=== PATIENT | female | born 1935 | race African-American/Black ===

== ENCOUNTER 2019-01-11 11:23 | Observation (INO) | payer OTHER ==
[~2019-01-11] VITALS: Ht 160 cm; Wt 59.3 kg
[2019-01-11 14:40] VITALS: BP 118/52
[2019-01-11 15:21] LABS: HEMOGLOBIN 11.2 gm/dL (12.0-15.0); MCH 25.9 pg (26.0-34.0); MCHC 33.9 g/dL (28.0-37.0); MCV 76.5 fL (80.0-100.0); RBC 4.32 mil/uL (4.20-5.00); RDW 22.1 % (10.5-14.5); WBC 17.1 thou/uL (4.0-11.0)
[2019-01-11 15:31] LABS: CALCIUM 10.2 mg/dL (8.5-10.1); CREATININE 0.8 mg/dL (0.6-1.0); POTASSIUM 4.4 mmol/L (3.5-5.1)
[2019-01-11] MEDS ORDERED: NORVASC10 MG PO (16:56)
[2019-01-11] MEDS ORDERED: TYLENOL325 MG PER TUBE (16:56)
[2019-01-11] MEDS ORDERED: ASPIR 8181 MG PER TUBE (16:57)
[2019-01-11] MEDS ORDERED: LIPITOR80 MG PER TUBE (16:57)
[2019-01-11] MEDS ORDERED: COREG12.5 MG PER TUBE (16:58)
[2019-01-11] MEDS ORDERED: NOVOLOG100 UNIT/1 SUBQ (16:59)
[2019-01-11] MEDS ORDERED: HUMULIN 70100 UNIT/2 SUBQ (17:01)
[2019-01-11 20:35] VITALS: BP 133/92
[2019-01-11 23:30] VITALS: BP 147/60
[2019-01-12 04:45] VITALS: BP 128/50
--- NOTE | 2019-01-12 05:25 | NUR ---
ASSUMED PT CARE AT 1900 WITH REPORT TAKEN. PT IS AN ADMIT FROM IR. PT HAD AN ANGIOGRAM DONE THROUGH THE RIGHT GROIN SITE. SITE IS DRY, CLEAN AND INTACT. ADMISSION ASSESSMENT AND EDICATION COMPLETED. KEYA WHO IS DPOA IS AT BEDSIDE. NO SIGN OF DISTRESS NOTED IN PT. SCHEDULED MEDS ADMINISTERED TO PT. PT HAS A GASTRUC TUBE IN PLACE. PT IS FROM A [facility]. PT WAS TO MONITORED OVERNIGHT. PT IS TO BE DISCHARGED BACK TO [facility]. PT IS UNABLE TO VERBALIZE. DENIES ANY FURTHER AT THIS TIME.
[2019-01-12 07:21] VITALS: BP 123/46
[2019-01-12 11:30] VITALS: BP 135/61
--- NOTE | 2019-01-12 12:32 | NUR ---
PT DISCHARGING BACK TO [facility] SPOKE WITH JESSIE SHE RECEIVED PROG. NOTES AND POST OP NOTES NO DC PAPERWORK PT WAS ONLY OBSERVATION. [facility]IA [facility] ARRANGED FOR [phone]. [facility]AND[facility] GABINO) OF DISCHARGE AND TIME OF TRANSPORT. UNIT NOTIFIED AND CHART COPY PER US. RN TO CALL REPORT TO [phone].
--- NOTE | 2019-01-12 13:26 | NUR ---
ASSUMED CARE THIS AM, PATIENT NON VERBAL BUT DOES NOT APPEAR TO BE IN ANY DISCOMFORT. SR ON MONITOR. TURNED TO LEFT SIDE AND PROPPED WITH PILLOW. HEEL BOOTS SECURE AND B FOOT DRESSINGS CDI. RIGHT GROIN DRESSING INTACT WITH SMALL SPOT OF DRIED BLOOD. NO SIGNS OF HEMATOMA. REPORT CALLED TO [facility] AT 1000. TRANSFERRED TO WHEELCHAIR AT 1330 AND TRANSPORTED BACK TO [facility] IN STABLE CONDITIONS WITH PERSONAL BELONGINGS
--- NOTE | 2019-01-12 14:18 | NUR ---
Pt here overnight obs after angiogram with stenting. Pt is a ltc resident at [facility]. DC account planner made arrangements for her return this afternoon and alerted her gson/dpoa Maximo. All parties updated and agreeable to pt's return to her ltc bed at [facility] today. Chart copy and scripts sent with the pt. Nursing called report.
[2019-01-23] MEDS ORDERED: MAPAP160 MG/51 PER TUBE (14:56)
[2019-01-23] MEDS ORDERED: PRO-STAT LIQUID30 M1 PER TUBE (14:58)
[2019-01-23] MEDS ORDERED: MIRALAX17 GM (15:00)
[2019-01-23] MEDS ORDERED: THERA-M CAPLET1 EAC1 PO (15:01)
[2019-01-23] MEDS ORDERED: SSD CREAM 1% 5050 GM TOP (15:01)
[2019-01-23] MEDS ORDERED: SENOKOT-S1 TA2 PER TUBE (15:01)
== END 2019-01-12 13:45 ==
LOC: CATH 11:23 → 2N 19:56
PROVIDERS: ADMIT Nuclear Medicine Nuclear Cardiology
DX: I73.9 Peripheral vascular disease, unspecified (principal)

== ENCOUNTER 2019-02-07 08:20 | Inpatient (IN) | payer OTHER ==
[2019-02-07] VITALS (10 sets, daily range): BP systolic 117–145; BP diastolic 61–68
[~2019-02-07] VITALS: Ht 160 cm; Wt 54.9 kg
--- NOTE | ~2019-02-07 | P ---
[facility] [place] [address] [address] PROCEDURE REPORT Name: ELO PAYNE Room #: 458-[facility] IN M.R.#: [id number] Admission: 02/08/19 ������������������ Attend Phys: Jelani Guzman Discharge: 02/13/19 ������������������ Date of : 37 Report #: [id number] THIS REPORT FOR: //name// CC: Jelani Chahal BRIEF HISTORY: The patient is an 83-year-old woman who has had a CVA and has had a PEG tube for feeding purposes. The PEG tube has become clogged and we were unable to flush the tube or pass a brush through the tube to resume continuity. PREOPERATIVE DIAGNOSIS: Malfunctioning gastrostomy tube. POSTOPERATIVE DIAGNOSIS: Malfunctioning gastrostomy tube. MEDICATIONS: None. SPECIMEN: None. ESTIMATED BLOOD LOSS: Trace. PROCEDURE: Removal of indwelling gastrostomy tube with replacement with non-balloon tipped 20-V[place] Citizen gastrostomy tube. DESCRIPTION OF PROCEDURE: The procedure was done at bedside. The patient was in the supine position. The tube was examined and the surrounding fistula appeared to be unremarkable. The water was let down from the existing tube, which was pulled out through the fistula. We then inserted a 20-[place] Citizen non-balloon tipped gastrostomy tube through the fistula into the stomach without difficulty. The bumper was pulled up against the stomach wall and the external part was pushed down loosely against the abdomen. The tube flushed easily after insertion. DISPOSITION: Tube replaced without difficulty. May resume tube feedings today. This non-balloon tipped tube should be more durable then a balloon tipped tube. ��������������������������������������������� ���������������������������������������� By: ��������������������������������������������� [id number] Jurgen Yip MD /nt
[~2019-02-07 08:20] MED LIST: ASPIR 8181 MG PER TUBE; COREG12.5 MG PER TUBE; HUMULIN 70100 UNIT/2 SUBQ; LIPITOR80 MG PER TUBE; MAPAP160 MG/51 PER TUBE; MIRALAX17 GM; NORVASC10 MG PO; NOVOLOG100 UNIT/1 SUBQ; PRO-STAT LIQUID30 M1 PER TUBE; SENOKOT-S1 TA2 PER TUBE; SSD CREAM 1% 5050 GM TOP; THERA-M CAPLET1 EAC1 PO; TYLENOL325 MG PER TUBE
[2019-02-07 09:17] LABS: HEMOGLOBIN 7.6 gm/dL (12.0-15.0); MCH 24.8 pg (26.0-34.0); MCHC 33.2 g/dL (28.0-37.0); MCV 74.8 fL (80.0-100.0); RBC 3.08 mil/uL (4.20-5.00); RDW 20.9 % (10.5-14.5); WBC 12.3 thou/uL (4.0-11.0)
[2019-02-07 09:30] LABS: CALCIUM 9.9 mg/dL (8.5-10.1); CREATININE 0.7 mg/dL (0.6-1.0); POTASSIUM 4.4 mmol/L (3.5-5.1)
[2019-02-07] MEDS ORDERED: PLAVIX 75 MG TA75 M1 PO (09:39)
--- NOTE | 2019-02-07 21:05 | NUR ---
PATIENT ARRIVED AT 1745 FROM IR, ALERT BUT NON-VERBAL, POST CARDIAC VS ESTABLISHED. ADMISSION COMPLETED WITH INFORMATION IN HAND . PEG TUBE INPLACE LUQ. BLE WOUND, AND SACRAL WOUND NOTED. POC INTIATED AND REPORT GIVEN TO TIA TADEO TO CONTINUE CARE.
[2019-02-08 04:35] LABS: HEMOGLOBIN 6.9 gm/dL (12.0-15.0)
[2019-02-08 04:36] LABS: HEMATOCRIT 20.7 % (37.0-47.0); MCH 24.7 pg (26.0-34.0); MCHC 33.3 g/dL (28.0-37.0); MCV 74.2 fL (80.0-100.0); RBC 2.79 mil/uL (4.20-5.00); RDW 20.7 % (10.5-14.5); WBC 12.4 thou/uL (4.0-11.0)
[2019-02-08 04:38] LABS: CALCIUM 9.3 mg/dL (8.5-10.1); CREATININE 0.6 mg/dL (0.6-1.0); POTASSIUM 3.9 mmol/L (3.5-5.1)
[2019-02-08 04:44] VITALS: BP 138/57
[2019-02-08 04:55] LABS: % SATURATION 16 % (20-39); IRON 20 ug/dL (50-170); TIBC 126 ug/dL (250-450)
[2019-02-08 05:49] LABS: FOLIC ACID 18.8 ng/mL (8.6-58.9)
--- NOTE | 2019-02-08 06:07 | NUR ---
ASSUMED CARE AT 1900. PT NON VERBAL PLAN AFFECT. ALERT. UNABLE TO ASSESS MENTATION. PT FEELS VIA PEG TUBE. DR. GALLAGHER NOTIFIED AND INDICATED PT WAS SUPPOSED TO BE FOLLOW BY A HOSPITALIST. PERSONAL FINANCE INSTRUCTOR NOTIFIED. CALLED [facility] TO CLARIFY PTS PEG FEED AND NURSE SHAINA AT THE [facility] REPORT GLUCERNA 1.2 X 5 /DAY. GIVEN 1 CAN THIS MORNING. BLOOD SUGAR COVERED WITH SLIDING SCARE. DIABETIC WOUND ULCER ON THE LE PHOTOGRAPHED.UNABLE TO ASSESS PEDAL PULSE BUT PRESENT WITH A DOPLER. 1/2 NS INITATED. PT INCONTINENT BOTH BOWEL AND BLADDER. NO FURTHER CONCERNS AT THIS TIME. WILL CONTINUE TO FOLLOW PLAN OF CARE.
[2019-02-08 08:46] VITALS: BP 125/63
--- NOTE | 2019-02-08 12:24 | NUR ---
FA[facility]ED REFERRAL TO [facility] SPOKE WITH JULIO IN ADM SHE RECEIVED REFERRAL AND WILL NOT BE ABLE TO ACCEPT DUE MEDICAID PENDING. JULIO IS CALLING [facility]AND[facility] TO SPEAK WITH HIM ABOUT HELPING WITH TRANSFER TO THEIR FACILITY ONCE MEDICAID ACTIVE. DCP TO FOLLOW.
[2019-02-08 13:08] VITALS: BP 117/47
--- NOTE | 2019-02-08 14:39 | NUR ---
Case opened to follow for dc planning. Pt is a resident at [facility]. She is being skilled under her medicare benefits and her gson/dpoa Maximo has been working with them to transition her to detention care in the near future. She [place]. Her gson is her dpoa for health care and finances and both documents are on the chart. Pt's gson is interested in looking at [facility] and [facility] for ltc placement as they have some care concerns with [facility]. [facility] is aware of this. They are holding a bed for the pt and would bring her back under her skilled medicare benefit with the same goal to transition to ltc. Maximo is agreeable to return there if the other facilities are not able to accept. He is aware that [facility] is not able to accept any medicaid pending referrals at this time. They are happy to consider her once her medicaid is approved and they have also shared this with Maximo. Will follow.
--- NOTE | 2019-02-08 14:59 | NUR ---
Nutrition: Agree with ordered tube feeds. REC add 125 mL H20 flush q 6 hrs to meet fluid needs now that IVFs have D/Rolly.
--- NOTE | 2019-02-08 16:02 | NUR ---
FAXED REFERRAL TO [facility] SPOKE WITH JULIO IN ADM SHE WILL NOT BE ABLE TO ACCEPT PT SHE WILL NOTIFY PT'S GRANDSON OF DENIAL. FAXED REFERRAL TO [facility] SPOKE WITH KANG AND SHE CAN ACCEPT PT CLINICALLY WILL WANT PRIOR NOTICE IF PT WILL DC WITH IV ABX. [facility]ED REFERRAL TO [facility] SPOKE WITH SAM IN ADM SHE IS REVIEWING REFERRAL AND WILL NEED COPY OF MEDICAID APPLICATION DCP TO F/U WITH FACILITY IN THE AM. FAXED REFERRAL TO [facility] SPOKE WITH ADM. LIASON SHE CAN ACCEPT PT AND WILL CHECK MEDICARE DAYS AVAILABLE AND THAT PT HAS MEDICAID PENDING. DCP RO FOLLOW.
--- NOTE | 2019-02-08 16:11 | NUR ---
WOUND CONSULT; ROUNDING WITH DR LAKE AND JADE PERSONAL INJURY LEGAL ASSISTANT. RIGHT FOOT HEEL WOUND UNSTABLE ESCHAR (UNSTAGEABLE) AND RIGHT MEDIAL FOOT STABLE ESCHAR (UNSTAGEABLE). THE RIGHT GREAT TOE HAS STABLE ESCHAR (UNSTAGEABLE). ALL THE RIGHT FOOT TOES INVOLVED WELL. THE LEFT LAT FOOT HAS LOST THE EPITHELIAL LAYER AND OTHER S/S OF PRESSURE AND POOR CIRCULATION. THE SACRUM HAS AN UNSTAGEABLE,ESCHAR COVERED. CULTURE WAS OBTAINED FROM THE RIGHT HEEL WOUND DRAINAGE. RECOMMENDATION PAINTED ALL WITH BETADINE FOR NOW. DAKINS TO ALL WOUNDS. DAILY/PRN DISCUSSED WITH CARLYLE Paz
[2019-02-08 19:35] VITALS: BP 117/31
--- NOTE | 2019-02-08 19:59 | NUR ---
PATIENT TRANSFERRED FROM CCU/219, REPORT FROM TOY/CARLYLE. PATIENT ARRIVED DURING REPORT, REPORT GIVEN TO MARLENE/CARLYLE.
--- NOTE | 2019-02-08 22:01 | NUR ---
ASSUMED CARE OF PATIENT AT 0700. PATIENT IS NONVERBAL. PATIENT IS RESTING IN BED AND TURNED Q2 HOURS. PATIENT HAS A PEG TUBE IN PLACE AND RECEIVING GLUCERNA FEEDINGS IN ADDITION TO ALL HER MEDS. PATIENT HEMOGLOBIN AND FEVER WAS RELAYED TO DR. ALCARAZ. STATES THAT SHE HAS CHRONIC ANEMIA AND IS BEING TREATED WITH CLINDAMYCIN IV FOR HER INFECTION. PATIENT WAS SEEN BY WOUND CARE TODAY AND CULTURES WERE TAKEN AND SUBMITTED TO THE LAB. PATIENT IS INCONTINENT OF BOTH BOWEL AND BLADDER AND CHANGED REGULARLY. PATIENT REMOVED HER IV JUST PRIOR TO TRANSFER BEFORE SHIFT CHANGE. PATIENT TRANSFERRED TO .
--- NOTE | 2019-02-09 02:20 | NUR ---
CARE ASSUMED AT 1900, PATIENT WAS IN BED AWAKE. PATIENT WAS TRANSFERED FROM CCU, DURING SHIFT CHANGE. PATIENT WAS WHEEZING, NO SHORTNESS OF AIR OR DISTRESS NOTED DURING SHIFT CHANGE. AT AROUND 1999, PATIENT NEEDED TO BE TURNED AND CLEANED D/T PATIENT IS INCONTIENT. PATIENT IS INCONTIENT PERICARE AND BARRRIER CREAM APPLIED NEEEDED. PATIENT HAD LABOURED BREATHING, AND WHEEZING. CALLED EX CHEF NEW ORDER OF DUONEB Q 6 HOURS, I UNIT OF BLOOD AND 1 BAG OF IRON SUCROSE. PATIENT IS NON VERBAL CALLED DPOA X2 FOR BLOOD CONSENT, DPOA CALLED AROUND 2336. BLOOD READY AT THIS TIME BUT PATIENT HAS IRON INFUSING AND THEN ABT THEN BLOOD WILL BE INFUSED. PER DPOA PATIENT HAD BLOOD TRANSFUSION BEFORE. PATIENT ON 1L OF OXYGEN, O2 SAT IS >95% AT THIS TIME. PATIENT IS ON GLUCERNA 1.2 AND TOLERATED WELL. PATIENT SLEEPY AT THIS TIME, BREATHING REGULAR AND UNLABOURED. VITAL SIGNS WNL.
[2019-02-09 03:25] VITALS: BP 129/48; BP 139/45; BP 143/55
[2019-02-09 07:48] VITALS: BP 130/53
[2019-02-09 10:10] LABS: HEMATOCRIT 25.3 % (37.0-47.0); HEMOGLOBIN 8.5 gm/dL (12.0-15.0); MCH 25.1 pg (26.0-34.0); MCHC 33.8 g/dL (28.0-37.0); MCV 74.3 fL (80.0-100.0); RBC 3.4 mil/uL (4.20-5.00); RDW 20.1 % (10.5-14.5); WBC 14.5 thou/uL (4.0-11.0)
[2019-02-09 14:03] VITALS: BP 116/42
--- NOTE | 2019-02-09 14:34 | NUR ---
WOUND CARE FOLLOW UP; ROUNDING WITH DR COLE AND JADE NURSING EDUCATOR. BILATERAL FEET AND SACRUM HAS NO IDENTIFIABLE CHANGE TODAY. RECOMMENDATIONS; CONT. CURRENT TREATMENT DISCUSSED WITH RN
--- NOTE | 2019-02-09 19:18 | NUR ---
PT STABLE THROUGHOUT SHIFT. WOUND CARE COMPLETE, PT WAS TURNED Q2 HRS, NO NEW SKIN ISSUES. PT'S BREATHING IMPROVED AND RT TOOK 02 OFF AND PT CONTINUED TO SAT IN LOW-MID 90'S. PT RESTING. FALL PRECAUTIONS IN PLACE.
[2019-02-09 21:00] VITALS: BP 124/49
[2019-02-10 04:15] VITALS: BP 132/60
--- NOTE | 2019-02-10 07:51 | NUR ---
Assumed care at 1845. Pt resting in bed. AOX1. VSS. Pt none verbal. Turn Q2. Applied optifoam to sacral wound. Pt has been having diarrhia with tube feeding. Blood sugar dropped onetime. Gave Dextrose 10% onetime IV. No identified needs at the moment. Will continue to monitor.
[2019-02-10 08:28] VITALS: BP 115/34
[2019-02-10 15:59] VITALS: BP 130/42
--- NOTE | 2019-02-10 19:13 | NUR ---
PT VITAL SIGNS STABLE THROUGHOUT SHIFT. PT TOLERATING TUBE FEEDINGS WELL, WOUND CARE COMPLETED, FALL PRECAUTIONS IN PLACE. PT RESTING.
[2019-02-10 19:48] VITALS: BP 156/85
--- NOTE | 2019-02-11 02:45 | NUR ---
PROGRESS PT ADMITTED WITH BILATERAL FOOT ULCERS, ANEMIA, S/P RIGHT SFA STENT AND A RIGHT POPITEAL STENT. WOUND CARE FOLLOWING WOUND FOR TREATMENT. O2 SATS DROPPED TO LOW 90'S UPPER 80'S THIS EVENING AND PT PLACED ON 2 LITERS, LUNGS CONTINUE TO BE WHEEZY AND DIMINISHED. PT INCONTINENT OF BOWEL AND BLADDER WAS INCONTINENT OF 2 LIQUID STOOLS THIS SHIFT. PT DC'D IV AND NEW 22 STARTED IN LEFT HAND. INTERMITTENT ANTIBIOTICS GIVEN ORDERED. CONTINUE POC.
[2019-02-11 03:22] VITALS: BP 187/78
[2019-02-11 08:10] VITALS: BP 141/69
--- NOTE | 2019-02-11 18:42 | NUR ---
PT VITAL SIGNS STABLE THROUGHOUT SHIFT. PT TOLERATED TF WELL. WOUND CARE COMPLETE. PT CONTINUES TO SLEEP THROUGH MOST OF SHIFT.
--- NOTE | 2019-02-12 07:56 | HC ---
[facility] [place] [address] CONSULTATION Name: ELO PAYNE Room #: 458-[facility] IN M.R.#: [id number] Admission: 02/08/19 ������������������ Attend Phys: Jelani Guzman Discharge: ������������������ Date of : 37 Report #: [id number] THIS REPORT FOR: //name// CC: Jelani Guzman My Sabih DATE OF SERVICE: 02/08/2019 CHIEF COMPLAINT: Ulcerations to both feet. HISTORY OF PRESENT ILLNESS: This is an 83-year-old female patient who resides at an extended care facility, was admitted for angiogram and had a stent placement to her right superficial femoral artery and right upper popliteal artery. She has ulcerations on her feet and I have been asked to see her with regard to wound care. She has a history of cerebrovascular accident, is aphasic and is tube fed. She cannot provide any information about herself presently. PAST MEDICAL HISTORY: Positive for diabetes mellitus, peripheral arterial disease, essential hypertension, cerebrovascular accident with aphasia and dysphagia, hypercholesterolemia, leg wound, hypercapnia, muscle weakness. SOCIAL HISTORY: Negative for alcohol or tobacco use. FAMILY HISTORY: Unknown. REVIEW OF SYSTEMS: Not obtainable due to the patient's condition. CURRENT ALLERGIES: Include FLUCONAZOLE. MEDICATIONS: At this time include amlodipine, aspirin, atorvastatin, carvedilol, NovoLog, Humulin, acetaminophen, polyethylene glycol, Senokot, Silvadene, Thera-M, Plavix. PHYSICAL EXAMINATION: VITAL SIGNS: At this time include temperature 100.6, pulse 100, respiratory rate of 18, blood pressure 117/47. GENERAL: This is a chronically ill-appearing female patient who appears to be in mild discomfort. HEAD: Normocephalic. NECK: Supple. LUNGS: Clear. HEART: Regular. ABDOMEN: Soft. Bowel sounds are present. EXTREMITIES: Lower extremities demonstrate ulcerations on the lower extremities. She has unstageable pressure ulcers with dry eschar to both heels as well as unstageable pressure ulceration to the right first MTP with some dry [facility] [address] [place] [address] CONSULTATION Name: ELO PAYNE Room #: 458-P [facility] IN .R.#: [id number] Admission: 02/08/19 ������������������ Attend Phys: Jelani Guzman Discharge: ������������������ Date of : 37 Report #: [id number] eschar and a little bit of odor and drainage. CLINICAL IMPRESSION: 1. Type 2 diabetes mellitus. 2. Cerebrovascular accident. 3. Unstageable pressure ulcer to both heels. 4. Pressure ulcer versus arterial switch to the right first MTP 5/ Peripheral arterial disease, status post left popliteal Tigris stent and left TPT peroneal drug-eluting stent in December. Angiogram today with right superficial femoral artery. upper right popliteal stent placement. known right TPT occlusion with single right peroneal runoff. RECOMMENDATIONS: We recommend Dakin's moist gauze to the heels. I am reluctant to debride her heels. She still may not have adequate flow for wound healing. We will see if we can dry these areas out and if we can get the eschar to be dry and stable. It may be most reasonable to leave that intact, especially in the heel areas. She may require some debridement of the first MTP, we will take a similar approach there. We will check x-rays and sed rate and CRP as well. I appreciate being asked to see her in consultation. ��������������������������������������������� <ELECTRONICALLY SIGNED> ���������������������������������������� By: Franklin Clemente MD ��������������������������������������������� 02/12/19 0756 [id number] Franklin Clemente MD /nt
[2019-02-12 08:00] VITALS: BP 142/63
[2019-02-12] MEDS ORDERED: CLEOCIN HCL150 MG PO (10:04)
[2019-02-12] MEDS ORDERED: COREG12.5 MG PER TUBE (10:14)
[2019-02-12 15:00] VITALS: BP 134/73
--- NOTE | 2019-02-12 16:43 | NUR ---
CARE TEAM NOTIFIED CM THAT PT'S PEG TUBE IS CLOGGED AND THAT GI HAS BEEN CONSULTED. CM HAD SPOKE WITH PT'S GRANDSON THIS AM AND INDICATED THAT [facility] AND [facility] CAN BOTH ACCEPT PT. HE IS GOING TO TOUR THE TWO FACILITIES. CM TO FOLLOW INDICATED WITH DC PLANNING.
--- NOTE | 2019-02-12 17:44 | NUR ---
WOUND FOLLOW UP; ROUNDING WITH DR COLE AND JADE TADEO. THE WOUNDS SEEM TO BE LESS PAINFULT TODAY. OTHERWISE NO NECCESSITY TO CHANGE THE WOUND CARE ORDERS TODAY. DISCUSSED WITH RN
--- NOTE | 2019-02-12 20:11 | NUR ---
ASSUMED CARE 0700/ AWAKE, APHAGIA, NPO, G-TUBE NOT PATENT NOTIFIED PHYSICIAN, MARIA E TORRES FROM GI ROUNDED ON PATIENT. MARIA E STATED DR PIERRE WILL CHECK PLACMENT TODAY AND SHE NOTIFIED DR ALCARAZ OF SITUATION. BLOOD SUGAR DROPPED TO CRITICAL DEXTROSE 10% STARTED AND DR ALCARAZ NOTIFIED. BLOOD SUGAR WITHIN NORMAL LIMITS, DR ALCARAZ NOTIFIED WITH ORDERS TO CONTINUE D10/50MLS. WOUND CARE ROUNDED AND PROVIDED DRESSING CHANGES AND PLACED ORDERS FOR DRESSINGS AND A CONSULT FOR PODIETRIST WHO WAS NOTIFIED. REMAIN NPO NO ACCESS FOR GTUBE FEEDING STILL NOT ADDRESSED, WILL MONITOR FOR SIGNS OF DISTRESS. REPOSTED OFF TO NIGHT NURSE TO CLOSELSY MONITOR. FALL PRECATIONS IN PLACE. TURNS EVERY 2 HOUR. STAFF TO PROVIDE OVERSIGHT FOR NEEDS.
[2019-02-12 21:56] VITALS: BP 148/78
[2019-02-13 05:47] VITALS: BP 141/76
[2019-02-13 07:32] VITALS: BP 145/59
--- NOTE | 2019-02-13 11:42 | NUR ---
[facility] LAMP CLEANER SENT UPDATED CLINICALS TO [facility], PATIENT MAY DC TODAY.
--- NOTE | 2019-02-13 12:30 | NUR ---
ASSUMED CARE 0700. ALERT/AWAKE NON VERBAL,RESPONDS TO NAME. BS 106 AT 0711 RE[address]ATED [address] PIERRE REPLACED GTUBE. MORNING MEDICATIONS AND NUTRITION GIVEN AND GTUBE PATENT. WOUND CARE GIVEN AND PICTURES TAKEN. PLANS TO DC TO FACILITY. TURNED [id number]. CONTINUE TO MONITOR BLOOD SUGARS. FALL PRECAUTIONS IN PLACE.CALL LIGHT IN REACH, PATIENT UNABLE TO CALL FOR ASSISTANCE. STAFF PROVIDES HOURL ROUNDING AND ANTICIPATE NEEDS.
--- NOTE | 2019-02-13 14:28 | NUR ---
WOUND CARE FOLLOW UP; ROUNDING WITH DR COLE AND JADE CHRONIC SPECIALIST. WE WERE UNABLE TO SEE THE PATIENTS WOUNDS DIRECTLY BECAUSE THE PATIENTS DISCHARGE IS IMMENENT. THE RN TOOK DISCHARCH PICTURES MINUTES BEFORE. WERE WERE ABLE TO VIEW THESE PICTURES. THE WOUNDS ARE STABLE AND MUCH IMPROVED SINCE ADMISSION. RECOMMENDATIONS; CONTINUE POC DISCUSSED WITH RN
[2019-02-13 14:40] VITALS: BP 122/53
[2019-02-13] MEDS ORDERED: PROBIOTIC1 EAC1 PO (16:11)
--- NOTE | 2019-02-13 16:42 | NUR ---
PT HAS BEEN ACCEPTED FOR ADMISSION TO [facility] FOR SKILLED THEN TRANSITION TO LTC. PT'S GRANDSON RAFAEL IS AGREEABLE WITH DC THER ETHIS EVENING. PT IS TO BE TRANSPORTED VIA [facility] BETWEEN [phone]. CHART COPY MADE. ORDERS FAXED. REPORT TO BE CALLED TO . NO OTHER CM INTERVENTION INDICATED. CASE CLOSED.
== END 2019-02-13 18:39 | DRG 393 ==
LOC: SPEC 08:20 → 2N 17:27 → SPEC 17:28 → 2N 17:28 → 4W 02-08 11:03 → 2N 02-08 11:03 → 4W 02-08 19:41
PROVIDERS: Nuclear Medicine Nuclear Cardiology; Nurse Practitioner Acute Care; Nurse Practitioner Gerontology; ADMIT Hospitalist
PROC: 30233N1 Transfusion of Nonautologous Red Blood Cells into Peripheral Vein, Percutaneous Approach (ICD-10-PCS; principal; 2019-02-09)
PROC: 0D20XUZ Change Feeding Device in Upper Intestinal Tract, External Approach (ICD-10-PCS; 2019-02-13)
DX: K94.23 Gastrostomy malfunction (principal); L89.153 Pressure ulcer of sacral region, stage 3; E46 Unspecified protein-calorie malnutrition; L89.95 Pressure ulcer of unspecified site, unstageable; E11.51 Type 2 diabetes mellitus with diabetic peripheral angiopathy without gangrene; D64.9 Anemia, unspecified; I10 Essential (primary) hypertension; E78.00 Pure hypercholesterolemia, unspecified; R13.10 Dysphagia, unspecified; D50.9 Iron deficiency anemia, unspecified; E78.5 Hyperlipidemia, unspecified; E11.65 Type 2 diabetes mellitus with hyperglycemia; L89.620 Pressure ulcer of left heel, unstageable; L89.610 Pressure ulcer of right heel, unstageable; Y83.8 Other surgical procedures as the cause of abnormal reaction of the patient, or of later complication, without mention of misadventure at the time of the procedure; E11.649 Type 2 diabetes mellitus with hypoglycemia without coma; L89.890 Pressure ulcer of other site, unstageable; I69.320 Aphasia following cerebral infarction; Z79.02 Long term (current) use of antithrombotics/antiplatelets; Z88.8 Allergy status to other drugs, medicaments and biological substances; Z79.899 Other long term (current) drug therapy; Z79.84 Long term (current) use of oral hypoglycemic drugs; Z79.82 Long term (current) use of aspirin; I69.391 Dysphagia following cerebral infarction; Z87.01 Personal history of pneumonia (recurrent); Y92.89 Other specified places as the place of occurrence of the external cause; Z68.21 Body mass index [BMI] 21.0-21.9, adult
CPT/HCPCS: 10047

== ENCOUNTER 2019-02-19 11:39 | Inpatient (IN) | payer OTHER ==
[~2019-02-19] VITALS: Ht 160 cm; Wt 60.8 kg
--- NOTE | ~2019-02-19 | O ---
[facility] [place] [address] [place] [address] OPERATIVE REPORT Name: ELO PAYNE Room #: 361-P [facility] IN M.R.#: [id number] Admission: 02/19/19 ������������������ Attend Phys: Hema Alvarado MD Discharge: ������������������ Date of : 37 Report #: [id number] THIS REPORT FOR: //name// CC: Hema Pepe Sabih DATE OF SERVICE: 02/20/2019 PREOPERATIVE DIAGNOSIS: Right foot gangrene. POSTOPERATIVE DIAGNOSIS: Right foot gangrene. PROCEDURE: Right [id number] amputation. SURGEON: Mazin Noland M.D. ANESTHESIA: General. ESTIMATED BLOOD LOSS: Minimal. DRAINS: No drains. TOURNIQUET TIME: 30 minutes. DESCRIPTION OF PROCEDURE: The patient was brought to the operating room where she was placed under general anesthesia. Once under adequate general anesthesia, her right lower extremity was prepped and draped in sterile manner. The extremity was elevated and tourniquet placed to 300 mmHg. A fishmouth incision about the mid portion of the tibia was then made. This was sharply dissected down to both the tibia and the fibula through the anterolateral and posterior compartments. The anterior tibial artery was identified and tagged with a hemostat. The posterior tibial artery and veins as well as the posterior tibial nerve were identified as well, and the posterior tibial nerve was incised deep in the musculature. The artery and vein were identified and tagged for later use. The tibia was then transected after elevating the periosteum with an oscillating saw. This was then beveled anteriorly with the oscillating saw as well, and the fibula was transected proximal to the tibial cut approximately 2 cm in an oblique fashion. Once complete, the wound was irrigated copiously, and the distal extremity was removed sharply releasing any further muscular tissue. The wound was irrigated copiously. The vessels were ligated with 0 silk suture, and the wound was then closed with 0 Vicryl in the deep fascial layer repairing to the periosteum of the tibia. The more superficial fascial layer was closed with 0 Vicryl as well over a Hemovac drain, 2-0 Vicryl was used in subcutaneous tissues and philip were used for the skin. The wound was dressed with Xeroform, 4 x 4s, and sterile soft compressive dressing was placed. Tourniquet was let down at approximately 30 minutes. There were no complications from the [address] [address] OPERATIVE REPORT Name: ELO PAYNE Room #: 361-P [facility] IN ..#: [id number] Admission: 02/19/19 ������������������ Attend Phys: Hema Alvarado MD Discharge: ������������������ Date of : 37 Report #: [id number] procedure. The patient tolerated the procedure well and went to the recovery room without incident. ��������������������������������������������� ���������������������������������������� By: ��������������������������������������������� 1512 1530 Mazin Noland MD /nt
[2019-02-19 11:51] VITALS: BP 142/57
[2019-02-19 13:43] LABS: HEMATOCRIT 24.8 % (37.0-47.0); HEMOGLOBIN 8.1 gm/dL (12.0-15.0); MCHC 32.9 g/dL (28.0-37.0); MCV 76.1 fL (80.0-100.0); RBC 3.25 mil/uL (4.20-5.00); RDW 23.5 % (10.5-14.5); WBC 14.4 thou/uL (4.0-11.0)
[2019-02-19 13:53] LABS: CALCIUM 9.5 mg/dL (8.5-10.1); CREATININE 0.7 mg/dL (0.6-1.0)
[2019-02-19 13:59] LABS: ALBUMIN 1.9 g/dL (3.4-5.0); TOTAL BILIRUBIN 0.7 mg/dL (<0.1-1.0); TOTAL PROTEIN 7.4 g/dL (6.4-8.2)
[2019-02-19 14:12] LABS: ABSOLUTE NEUTROPHILS 12.4 thou/uL (1.4-8.2); NUCLEATED RBCS 1 /100WBC
[2019-02-19 14:13] LABS: ANISOCYTOSIS 3+; HYPOCHROMASIA SLIGHT; MICROCYTES 1+; POLYCHROMASIA 1+
[2019-02-19 14:14] LABS: LARGE PLATELETS OCCASIONAL
[2019-02-19 14:15] LABS: PLATELET COUNT 169 thou/uL (150-400)
[2019-02-19 17:41] VITALS: BP 135/69
[2019-02-19 17:48] VITALS: BP 135/69
[2019-02-19 18:56] VITALS: BP 135/69
[2019-02-20 04:03] VITALS: BP 164/138; BP 164/68
[2019-02-20 04:10] LABS: HEMATOCRIT 24.6 % (37.0-47.0); HEMOGLOBIN 8.1 gm/dL (12.0-15.0); MCH 25.1 pg (26.0-34.0); MCHC 32.9 g/dL (28.0-37.0); MCV 76.3 fL (80.0-100.0); PLATELET COUNT 162 thou/uL (150-400); RBC 3.22 mil/uL (4.20-5.00); RDW 23.9 % (10.5-14.5)
[2019-02-20 04:20] LABS: CALCIUM 9.3 mg/dL (8.5-10.1); CREATININE 0.6 mg/dL (0.6-1.0); MAGNESIUM 1.6 mg/dL (1.8-2.4); POTASSIUM 4.5 mmol/L (3.5-5.1)
--- NOTE | 2019-02-20 05:50 | NUR ---
PT ARRIVED TO UNIT AT 1815. COMPLETED ADMISSION, UPDATED CARE PLAN, AND ADDED NECESSARY INTERVENTIONS. PT IS SCHEDULED FOR AMPUTATION AT 1330 02/20. PT HAS PAD WOUNDS BLLE. SACRAL WOUND OPEN TO AIR AND PICTURE IS IN CHART. PRATHO BOOTS IN PLACE. STOOL SAMPLE COLLECTED PER POC FOR CDIFF. ISOLATION PRECAUTIONS IN PLACE. PT FREQUENTLY REMOVES NASAL CANNULA. PT HAS BEEN NPO SINCE ARRIVAL TO UNIT. FOLLOWING POC WITH IVF. DURING FOCUSED ASSESSMENT DISCOVERED PT HAD PEG TUBE. INSERTED FELIX DUE TO WOUNDS, BEDREST, AND PT GOING TO SURGERY TODAY. HOURLY ROUNDING.
[2019-02-20 06:08] LABS: ABSOLUTE NEUTROPHILS 13.2 thou/uL (1.4-8.2)
[2019-02-20 06:11] LABS: ANISOCYTOSIS 3+; PLATELET ESTIMATE NORMAL; POIKILOCYTOSIS 2+; POLYCHROMASIA 1+
[2019-02-20 07:13] VITALS: BP 148/74
--- NOTE | 2019-02-20 11:14 | NUR ---
WOUND CARE; MOTORCYCLE FABRICATOR NOTIFIED OF THIS WELL KNOWN PATIENT TODAY. REVIEWED THE PLAN FOR AN AMPUTATION OF THE RIGHT LEF TODAY. WE WILL FOLLOW UP WITH THIS PATIENT AFTER SURGERY. NO RECOMMENDATIONS AT THIS TIME
--- NOTE | 2019-02-20 11:33 | NUR ---
ASSUMED CARE AT 0700, SHIFT ASSESSMENT DONE, NPO SINCE LAST NIGHT. SCHEDULED FOR SURGERY TODAY AT 1330. PHONE CONSENT WAS SIGNED. INSULIN GIVEN FOR BS THIS AM, CARVEDILOL GIVEN FOR BP THROUGH PEG TUBE, ALL OTHER MEDS HELD. DRESSING CHANGE PERFORMED PER INSTRUCTION TO LEFT MEDICAL FOOT AND HEEL AND SACRUM. WILL CONTINUE TO ASSESS AND ASSIST WITH ADLs NEEDED.
--- NOTE | 2019-02-20 11:41 | HC ---
[facility] [place] [address] CONSULTATION Name: ELO PAYNE Room #: 361- ADM IN M.R.#: [id number] Admission: 02/19/19 ������������������ Attend Phys: Hema Alvarado MD Discharge: ������������������ Date of : 37 Report #: [id number] THIS REPORT FOR: //name// CC: Hema Norris DATE OF SERVICE: 02/20/2019 WOUND CARE CONSULTATION PERSONAL PHYSICIAN: Nonstaff. CHIEF COMPLAINT: Necrotic right foot. HISTORY OF PRESENT ILLNESS: This is an 83-year-old white female who is nonverbal and essentially bedbound, who was seen in the Wound Clinic yesterday, diagnosed with gangrene of the right foot, was admitted to the hospital for evaluation and probable amputation. The patient is seen today pending a surgical amputation later this afternoon by Orthopedics. The patient once again is nonverbal. The patient moans during the exam. The patient is currently on IV antibiotics. PAST MEDICAL HISTORY: Significant for diabetes; severe peripheral arterial disease, status post recent left popliteal stent and stenting to the right superficial femoral artery and right upper popliteal artery; hypertension; previous CVA with residual aphasia and dysphagia; and chronic debility. CURRENT MEDICATIONS: Multiple, I reviewed the patient's medication list. DRUG ALLERGIES: FLUCONAZOLE. SOCIAL HISTORY: The patient resides in a care facility. FAMILY HISTORY: Not pertinent to current medical condition. REVIEW OF SYSTEMS: Unobtainable because the patient is nonverbal. PHYSICAL EXAMINATION: VITAL SIGNS: Temperature 37.1, pulse 104, respiratory rate 18, and BP 148/74. GENERAL: This is an awake, but nonverbal black female, who is chronically ill appearing. HEENT: Normocephalic, atraumatic. Mucous membranes dry. Pupils are round. Sclerae white. NECK: Supple and nontender. LUNGS: Clear. HEART: Regular, without murmur. [facility] [address] [place] [address] CONSULTATION Name: ELO PAYNE Room #: 361-P [facility] IN [facility].#: [id number] Admission: 02/19/19 ������������������ Attend Phys: Hema Alvarado MD Discharge: ������������������ Date of : 37 Report #: [id number] ABDOMEN: Soft and nontender. EXTREMITIES: The patient moves all extremities spontaneously. Movement of lower extremities are limited secondary to pain. Evaluation of right foot reveals a necrotic right great second toe with eschar and foul odor, several brownish drainage. The right heel is also necrotic with a loosely intact eschar, also with foul odor and brownish drainage. Left lateral foot are stage 3 decubitus ulcers, which are clean and granulating, without signs of infection or necrosis, but wound was located on the left lateral foot. Wound are located on the left lateral heel. No other associated ulcerations noted on the left foot. Distal pulses are faint. The patient also has a chronic stage III decubitus ulcer in the sacrococcygeal region, which is clean and granulating without signs of infection. NEUROLOGIC: Cranial nerves II through XII are grossly intact. The patient is nonverbal. LABORATORY DATA: White count 14,000, hemoglobin 8.1. Sed rate is 96. Albumin 1.9. C-reactive protein is 93.3. IMPRESSION: 1. Gangrene of the right great toe and right heel secondary to severe peripheral arterial disease. 2. Severe peripheral arterial disease. 3. Chronic stage III decubitus ulcer, left lateral foot and left heel. 4. Diabetes mellitus. 5. Generalized debility. 6. Cerebrovascular accident with aphasia and dysphagia. 7. Protein-calorie malnutrition, severe. 8. Chronic stage III sacrococcygeal decubitus ulcer. PLAN: At this time, Orthopedic has already evaluated the patient, is planning for probable BKA later today. The patient has already had arterial intervention done within the past month. We will make sure we maximize the patient's protein supplementation for healing. I will talk to the family about possibly placing a PEG tube for continued protein supplementation. We will place Silvadene with zinc barrier cream to the sacrococcygeal ulcer twice daily. We will place a low air loss mattress and will be turned every 2 hours. We will use Silvadene and Xeroform, Kerlix to the left foot ulcerations with heel protection at all times. We will continue to follow the patient while she is here. At some point in time, I do not think the patient's most likely a candidate for physical, occupational therapy. We can see as she does not want the surgery to be performed. ��������������������������������������������� <ELECTRONICALLY SIGNED> ���������������������������������������� By: Florencio Tanner MD ��������������������������������������������� 02/20/19 1141 [id number] [id number] Florencio Tanner MD /nt
--- NOTE | 2019-02-20 15:28 | NUR ---
INITIAL ASSESSMENT: Received consult as pt was admitted from a nursing facility. ANDRADE reviewed chart and spoke with nursing and attending physician. Pt was admitted from [facility]. Pt to have right BKA today due to right foot gangrene. ANDRADE spoke with pt's grandson/DPOA, Maximo, via phone. Introduced role of ANDRADE. Maximo confirms plan is for pt to return to [facility] when medically stable. Maximo requests that medical information to only be communicated with him. Should pt have visitors, they will need to be directed to Maximo for information. ANDRADE discussed with nursing. habitat conservation planner to fax clinical info to [facility] tomorrow. ANDRADE spoke with Summer in admissions at [facility], who confirms they are able to accept pt back when she is medically stable for discharge. ANDRADE is following to assist as needed with discharge planning.
[2019-02-20 17:29] VITALS: BP 143/55
--- NOTE | 2019-02-20 19:28 | NUR ---
PATIENT ARRIVED POST OF FOR BELOW THE KNEE AMPUTATION WITH DRESSING C/D/I. ALERT/AWAKE, APHAGIC, STRICT NPO, GTUBE FOR GLUCERNA 1.2 BOLUS AND 100ML WATER FLUSH. TONIGHT PT TO REMAIN CLEAR LIQUIED DIET. PAIN MANAGED WITH MEDICATIONS. VS WNL. Q2HOUR TURNS TOLERATED. WOUND CARE TO SACREL AND LEFT FOOT. FALL PRECAUTIONS IN PLACE. CALL LIGHT IN REACH. PT UNABLE TO DEMONSTRATE CALL LIGHT USE. STAFF TO ANTICIPATE NEEDS.
[2019-02-20 19:40] VITALS: BP 146/80
--- NOTE | 2019-02-21 04:34 | NUR ---
Pt. rested quietly during the night when checked on during frequent rounds. She is non-verbal. Pt. turned and repositioned for comfort. G-tube patent upon auscultation. Head of the bed elevated. Dressing to right stump is dry and intact. Hemovac also patent. Bed alarm is on.
[2019-02-21 04:41] LABS: HEMOGLOBIN 6.6 gm/dL (12.0-15.0)
[2019-02-21 05:15] VITALS: BP 161/63
[2019-02-21 08:17] VITALS: BP 134/65
[2019-02-21 11:41] LABS: FOLIC ACID 15.1 ng/mL (8.6-58.9)
[2019-02-21 11:48] VITALS: BP 134/65
--- NOTE | 2019-02-21 14:14 | NUR ---
PATIENT DROWSY AND AWAKENS EASILY, APHAGIC STRICT NPO, GLUCERNA 1.2 BOLUS DIET RESTARTED 5 CANS A DAY WITH 100ML WATER BOLUS. BLOOD SUGAR CHECKS PRIOR FEEDING. WOUND CARE TO LEFT FOOT AND SACREL ARE COMPLETE. FELIX IN PLACE, BM TODAY. TURN 2 HOURS TOLERATED. RIGHT STUMP DRESSING ELEVATED C/D/I. FALL PRECAUTIONS IN PLACE. PT UNABLE TO DEMONSTRATE CALL LIGHT.
[2019-02-21 16:16] VITALS: BP 125/35
--- NOTE | 2019-02-21 17:19 | NUR ---
PT IS POD#1 CM TO FOLLOW INDIATED WITH DC PLANNING.
[2019-02-21 19:34] VITALS: BP 128/52
[2019-02-22 04:00] VITALS: BP 130/42
[2019-02-22 04:41] LABS: CALCIUM 8.1 mg/dL (8.5-10.1); CREATININE 0.5 mg/dL (0.6-1.0); POTASSIUM 3.8 mmol/L (3.5-5.1)
--- NOTE | 2019-02-22 04:42 | NUR ---
Pt. rested quietly at intervals during the night when checked on during frequent rounds. She is non-verbal, but was making groaning noises. Pain med given (see emar) and pt. no longer moaning. G-tube is patent upon ausculation. Bed alarm is on.
[2019-02-22 04:53] LABS: RBC 2.48 mil/uL (4.20-5.00)
[2019-02-22 04:55] LABS: MCH 25.2 pg (26.0-34.0); MCHC 33.5 g/dL (28.0-37.0); MCV 75.1 fL (80.0-100.0); RDW 23.5 % (10.5-14.5)
[2019-02-22 05:02] LABS: HEMATOCRIT 18.6 % (37.0-47.0); HEMOGLOBIN 6.2 gm/dL (12.0-15.0)
[2019-02-22 12:30] VITALS: BP 114/45; BP 115/41
[2019-02-22 15:49] VITALS: BP 114/45
--- NOTE | 2019-02-22 18:50 | NUR ---
QUIET UNEVENTFUL DAY. REMAINS ON BEDREST. NONVERBAL. TURNED Q2H. WOUND NURSE CHANGED WOUND DRESSINGS. GOOD URINE OUTPUT. PAIN CONTROLLED WITH HYDROCODONE. TOLERATING TUBE FEEDINGS. DOING ACCUCHECKS PRIOR TO TUBE FEEDS. COVERED WITH INSULIN TODAY. FALL PRECAUTIONS IN PLACE.
[2019-02-22 19:51] VITALS: BP 118/52
[2019-02-22 23:30] LABS: HEMATOCRIT 22.9 % (37.0-47.0); HEMOGLOBIN 7.7 gm/dL (12.0-15.0)
--- NOTE | 2019-02-23 04:00 | NUR ---
Pt. rested quietly at intervals during the night when checked on during frequent rounds. She is nonverbal. Incontinent of a large brown liquid stool. G-tube patent upon ausculation. Pain med given (see emar) for discomfort with some relief noted. Dressing to right lower leg stump is dry and intact. Bed alarm is on.
[2019-02-23 05:57] VITALS: BP 146/61
[2019-02-23 08:00] VITALS: BP 139/54
--- NOTE | 2019-02-23 09:17 | NUR ---
Nutrition needs were reassessed and recommend following tube feeding changes: 1. increase glucerna 1.2 to 6 cans per day 2. rec discontinue IVF and increase ordered water flushes to 175ml after each bolus
--- NOTE | 2019-02-23 12:34 | NUR ---
CARE TEAM INDICATED THAT PT IS MEDICALLY STABLE TO DISHCARGE BACK TO [facility] THIS DAY. CM CALLED AND NOTIFIED PT'S PAOLAON RAFAEL. HE IS AWARE AND AGREEABLE. CM CALLED AND SPOKE WITH OWEN AT [facility] AND SHE INDICATED SHE NEEDS ORDERS IN [facility] BEFORE A TRANSPORT TIME IS SET UP. SHE INDICATED THAT WE WOULD NEED TO ARRANGE STRETCHER VAN TRANSPORT. CM TO FOLLOW INDICATED WITH DC PLANNING.
--- NOTE | 2019-02-23 14:07 | HC ---
[facility] [place] [address] [address] CONSULTATION Name: ELO PAYNE Room #: 463-P ADM IN M.R.#: [id number] Admission: 02/19/19 ������������������ Attend Phys: Hema Alvarado MD Discharge: ������������������ Date of : 37 Report #: [id number] THIS REPORT FOR: //name// CC: Hema Chahalih DATE OF SERVICE: 02/20/2019 REASON FOR CONSULTATION: I was asked to evaluate concerning gangrene of the right foot. HISTORY OF PRESENT ILLNESS: The patient is an 83-year-old with history of previous stroke and residual aphasia. She was noncommunicative, resides at [facility]. Has underlying diabetes and peripheral vascular disease. Recent left popliteal stent and stenting to the right superficial femoral artery and right upper popliteal artery. Despite this, she has developed gangrene of her right foot. She presents now through the Emergency Room after being seen in the Wound Care Clinic with evidence of progressive right foot deterioration. No fever, chills or sweats. Has significant amount of pain in the foot. She was started empirically on broad antibiotic coverage last evening. She has remained afebrile and hemodynamically stable. She was unable to give any further details. REVIEW OF SYSTEMS: Unable to be obtained from the patient. ALLERGIES: FLUCONAZOLE. MEDICATIONS: As noted on her MAR including vancomycin and Unasyn. PAST MEDICAL HISTORY: Diabetes, peripheral vascular disease, hypertension, stroke with aphasia, hyperlipidemia, previous arterial work as noted above. FAMILY HISTORY: Noncontributory. SOCIAL HISTORY: Nonsmoker, no significant alcohol intake. REVIEW OF SYSTEMS: As noted above. PHYSICAL EXAMINATION: VITAL SIGNS: Afebrile and hemodynamically stable. GENERAL APPEARANCE: The patient was awake, but noncommunicative. SKIN: Gangrene of her right foot, Tenderness throughout the foot with right first toe black with eschar. Extensive wound to her heel with eschar. Foot was cool to touch. No palpable pulses in the foot. No palpable adenopathy. HEENT: Eyes, without scleral icterus. Mouth without mucositis. LUNGS: Clear. [facility] [address] [place] [address] CONSULTATION Name: ELO PAYNE Room #: 463-P [facility] IN M.R.#: [id number] Admission: 02/19/19 ������������������ Attend Phys: Hema Alvarado MD Discharge: ������������������ Date of : 37 Report #: [id number] HEART: Regular. ABDOMEN: Soft and nontender. She had a PEG tube in place. EXTREMITIES: Unremarkable other than what is described above. The patient had left upper extremity and lower extremity weakness. LABORATORY STUDIES: Reviewed. Creatinine was 0.6, hemoglobin 8.1. WBC 14, platelet count 162,000. Differential remarkable for 7% bands. Sedimentation rate 96. C. difficile PCR was negative. Blood cultures are pending. Review of previous foot culture 02/08/2019 showed E. coli and Proteus sensitive to ampicillin, third generation cephalosporins, Zosyn, ertapenem. IMPRESSION: An 83-year-old with: 1. Gangrene of her right foot. She has peripheral vascular disease with occlusion of her distal vessels. 2. Previous stroke with aphasia, left hemiparesis. 3. Diabetes. RECOMMENDATION: Below-knee amputation. We will continue IV antibiotic therapy with ceftriaxone postoperatively. Reevaluate her incision after amputation to determine length of therapy. Typically, this would be 3 days postop. Continue to control blood glucose. We will follow up postoperatively. ��������������������������������������������� <ELECTRONICALLY SIGNED> ���������������������������������������� By: Kayden Aviles MD ��������������������������������������������� 02/23/19 1407 [id number] Kayden Aviles MD /nt
--- NOTE | 2019-02-23 14:52 | NUR ---
DISCHARGE ORDERS COMPLETED. PATIENT DISCHARING TO [facility]. CHART COPIED PER ORNAMENTAL IRONWORKING SUPERVISOR. ORDERS FAXED TO [facility] ADMISSIONS OFFICE, VERIFIED RECEIVED WITH KELLY. [facility] TO TRANSPORT PATIENT, 1700 HOURS. VOICE MAIL LEFT FOR KEYA/SAL HALL TO NOTIFY. UNIT RN NOTIFIED AND CONTACT NUMBER FOR REPORT PROVIDED TO HER. UNIT CM/SW AWARE.
[2019-02-23 16:00] VITALS: BP 135/59
--- NOTE | 2019-02-23 17:05 | PATH ---
[facility] [address] [place] [address] PATHOLOGY RPT PROCEDURE Name: SABA PAYNE Room #: 463-P ADM IN M.R.#: [id number] ������������������ Admission: 02/19/19 ������������������ Date of : 37 Discharge: Report #: [id number] Path Case #: [id number] [facility] Accession Number: [id number] . 01 Material submitted: . knee - RIGHT BELOW THE KNEE AMPUTATION. Modifiers: right . 01 Clinical history: . Gangrene . 02 Diagnosis: Leg, right, below the knee amputation: - Skin and subcutaneous tissue with marked acute inflammation as well as gangrenous necrosis. 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 - Vessels showing complete luminal narrowing. - Skin margin viable and unremarkable. - Bone margin grossly viable. (IUV:zainab; 02/23/2019) QMS/02/23/2019 . 02 Electronically signed: . Edilia Hernandez MD, Pathologist NPI- [id number] . 01 Gross description: . Received in a red biohazard bag labeled "Saba Payne, right BKA" and consists of a right below the knee amputation specimen measuring 30.3 cm heel to proximal soft tissue/skin margin and 21.9 cm heel to first toe. Protruding from the proximal resection margin is the fibula (13.9 cm in length and 1.8 cm in diameter and tibia 3.6 cm in length and 2.4 cm in diameter. The skin is brown with extensive mummification on the heel (5.2 x 4.4 cm) and first toe/medial foot (7.0 x 4.5 cm). All 5 toes are present which display thickened irregular bragg-brown nails. The anterior and posterior tibial vasculature displays grossly patent lumens. Sectioning through the heel and first toe lesions reveals gross extension into the underlying bone. Plumbing [employer] Heating [employer]or sections are submitted as follows: . A1: Skin soft tissue margin A2: Plumbing And Heating Contractor section from both heel and first toe lesions A3: Anterior and posterior tibial vasculature (posterior inked black) A4: Bone underlying heel lesion following decalcification (SDY; 02/22/2019) SYU/SYU . [address] [place] [address] PATHOLOGY RPT PROCEDURE Name: SABA PAYNE Room #: 463-P ADM IN M.R.#: [id number] ������������������ Admission: 02/19/19 ������������������ Date of : 37 Discharge: Report #: [id number] Path Case #: [id number] Pathologist provided ICD-10: M86.161, I96, L98.499 . 02 CPT . 697104, [id number] Specimen Comment: A courtesy copy of this report has been sent to Specimen Comment: [phone], , . Specimen Comment: Report sent to ,DR NEWTON / DR SAN Performed at: [address], [place] [id number] MD Delano Rankin MD Phone: [phone] Performed at: [address] [id number] MD Edilia Hernandez MD Phone: [phone]
--- NOTE | 2019-02-23 17:36 | NUR ---
Assumed pt care this am, pt is aphasic and non verbal. turned every 2 hours, wound care done and pictures taken. With G tube, patent able to aspirate and deliver glucerna 1.2 (3 cans for this shift) and 175 cc water flush, all medications crushed and given through this route. NPO maintained. Right BKA site surgical dressing clean, dry and intact. FC in place, draining yellow urine. Fall precautuins in place, frequent rounding done through out the shift. Blood sugar checks and medication done and given. POC followed. DC order given, called report to Teddy no nurse available left call back number to Danica. IV removed, awaiting for strip picker.
== END 2019-02-23 18:15 | DRG 239 ==
LOC: ER 11:39 → 3W 14:03 → EROBS 14:03 → 3W 18:01 → 4W 02-20 17:00
PROVIDERS: Nurse Practitioner; Nurse Practitioner Acute Care; Orthopaedic Surgery Foot and Ankle Surgery; Physician Assistant; ADMIT Hospitalist
PROC: 0Y6H0Z1 Detachment at Right Lower Leg, High, Open Approach (ICD-10-PCS; principal; 2019-02-20)
PROC: 30233N1 Transfusion of Nonautologous Red Blood Cells into Peripheral Vein, Percutaneous Approach (ICD-10-PCS; 2019-02-22)
DX: E11.52 Type 2 diabetes mellitus with diabetic peripheral angiopathy with gangrene (principal); L89.623 Pressure ulcer of left heel, stage 3; E43 Unspecified severe protein-calorie malnutrition; L89.153 Pressure ulcer of sacral region, stage 3; L89.893 Pressure ulcer of other site, stage 3; I96 Gangrene, not elsewhere classified; M86.8X8 Other osteomyelitis, other site; E11.69 Type 2 diabetes mellitus with other specified complication; I10 Essential (primary) hypertension; E78.5 Hyperlipidemia, unspecified; E11.65 Type 2 diabetes mellitus with hyperglycemia; R13.10 Dysphagia, unspecified; D53.9 Nutritional anemia, unspecified; E83.42 Hypomagnesemia; Z95.820 Peripheral vascular angioplasty status with implants and grafts; I69.320 Aphasia following cerebral infarction; Z68.23 Body mass index [BMI] 23.0-23.9, adult; Z79.899 Other long term (current) drug therapy
CPT/HCPCS: 10047; 10879; 50010; 50101; 50386; 51412; 51771; 53000; 56524; 56525; 57091; 57180; 62110; 62900; 70005

== ENCOUNTER → 2019-02-19 | Outpatient (CLI) | payer OTHER ==
[~2019-02-19] MED LIST changes: +CLEOCIN HCL150 MG PO; +HUMALOG JU100 UNIT/1 SUBQ; -HUMULIN 70100 UNIT/2 SUBQ; +PLAVIX 75 MG TA75 M1 PO; +PROBIOTIC1 EAC1 PO
== END ==
LOC: HYPER 02-14 15:03
DX: E11.622 Type 2 diabetes mellitus with other skin ulcer (principal); L89.153 Pressure ulcer of sacral region, stage 3; L98.491 Non-pressure chronic ulcer of skin of other sites limited to breakdown of skin; E11.621 Type 2 diabetes mellitus with foot ulcer; I70.245 Atherosclerosis of native arteries of left leg with ulceration of other part of foot; L97.521 Non-pressure chronic ulcer of other part of left foot limited to breakdown of skin; L89.892 Pressure ulcer of other site, stage 2; I70.244 Atherosclerosis of native arteries of left leg with ulceration of heel and midfoot; L97.421 Non-pressure chronic ulcer of left heel and midfoot limited to breakdown of skin; I70.234 Atherosclerosis of native arteries of right leg with ulceration of heel and midfoot; L89.610 Pressure ulcer of right heel, unstageable; L97.411 Non-pressure chronic ulcer of right heel and midfoot limited to breakdown of skin; L89.620 Pressure ulcer of left heel, unstageable; I70.235 Atherosclerosis of native arteries of right leg with ulceration of other part of foot; L97.511 Non-pressure chronic ulcer of other part of right foot limited to breakdown of skin; I69.320 Aphasia following cerebral infarction; E11.22 Type 2 diabetes mellitus with diabetic chronic kidney disease; I12.9 Hypertensive chronic kidney disease with stage 1 through stage 4 chronic kidney disease, or unspecified chronic kidney disease; N18.9 Chronic kidney disease, unspecified; Z95.820 Peripheral vascular angioplasty status with implants and grafts